=== PATIENT | female | born 2000 | race African-American/Black ===

== ENCOUNTER 2019-12-19 09:53 | Inpatient (IN) | payer BC, OTHER ==
[2019-12-19 11:01] VITALS: BMI 37.9
[2019-12-19] MEDS ORDERED: FLU VACC QS2020-21(6MOS UP)/PF 60 MCG/0.5 ML SYRINGE IM ONE (11:15)
[2019-12-19] MEDS ORDERED: Misoprostol 200 MCG TAB PR PRN (11:25)
[2019-12-19] MEDS ORDERED: Carboprost 250 MCG/ML AMP IM PRN (11:25)
[2019-12-19] MEDS ORDERED: Ondansetron PF 4 MG/2 ML Vial IVP PRN ×3 (11:25→18:06)
[2019-12-19] MEDS ORDERED: Butorphanol Tartrate 1 MG/ML VIAL SLOW IVP PRN (11:25)
[2019-12-19] MEDS ORDERED: NS / Oxytocin 40 units/1000ml 1,000 ML IV PRN (11:25)
[2019-12-19] MEDS ORDERED: Acetaminophen 500 MG TAB PO PRN (11:25)
[2019-12-19] MEDS ORDERED: HYDROcodone/Acetaminophen 5/325 mg Tablet PO PRN ×4 (11:25→18:06)
[2019-12-19] MEDS ORDERED: Diphenoxylate HCl/Atropine Tablet PO PRN ×2 (11:25)
[2019-12-19] MEDS ORDERED: Docusate 100 MG CAP PO PRN (11:25)
[2019-12-19] MEDS ORDERED: Lidocaine 1% (PF) 30 ML VIAL SC PRN (11:25)
[2019-12-19] MEDS ORDERED: Promethazine HCl 25 MG/ML VIAL IM PRN ×3 (11:25→18:06)
[2019-12-19] MEDS ORDERED: Methylergonovine 0.2 MG/ML VIAL IM PRN ×2 (11:25→18:06)
[2019-12-19] MEDS ORDERED: Ibuprofen 800 MG TAB PO PRN (11:25)
[2019-12-19] MEDS ORDERED: hydrALAZINE 20 MG/ML VIAL SLOW IVP PRN ×2 (11:25→18:06)
[2019-12-19] MEDS ORDERED: NS w/ Oxytocin 10 units 500 ML IV SCH ×2 (11:30)
[2019-12-19] MEDS ORDERED: Lactated Ringer's 1,000 ML IV SCH (11:30)
[2019-12-19] MEDS ORDERED: NS w/ Oxytocin 10 units 500 ML ONE (11:36)
[2019-12-19] MEDS ORDERED: Bupivacaine PF 0.5% 30 ML VIAL ONE (11:40)
[2019-12-19] MEDS ORDERED: Bupivacaine 0.25% HCL 30 ML VIAL ONE (11:40)
[2019-12-19 12:26] LABS: Syphilis Antibody Nonreactive (Nonreactive); Syphilis Antibody Index 0.03 S/CO (<1.00 Non-Reactive)
[2019-12-19 12:26] LABS: Hep B Surf Ag Non-Reactive S/CO (NonReactive)
[2019-12-19 13:43] LABS: Hemoglobin 12.5 g/dL (12.0-16.0); Mean Corpuscular HGB CONC 34.6 g/dL (32.0-36.0); Mean Corpuscular Hemoglobin 34.1 pg (25.0-35.0); Mean Corpuscular Volume 98.4 fL (78.0-98.0); Mean Platelet Volume 9.4 fL (7.4-10.4); Platelet Count 177 thou/uL (130-400); RBC Distribution Width 11.5 % (11.5-14.5); Red Blood Cell (RBC) Count 3.68 mill/uL (4.00-5.20); White Blood Cell (WBC) Count 8.7 thou/uL (4.8-10.8)
[2019-12-19] MEDS ORDERED: Fentanyl 4 mcg/Bup 0.1% Cadd 100 ML ONE (13:50)
[2019-12-19] MEDS ORDERED: EPHEDRINE 25 MG/5 ML SYRINGE SLOW IVP PRN (15:02)
[2019-12-19] MEDS ORDERED: Lactated Ringer's 500 ML IV PRN (15:02)
[2019-12-19] MEDS ORDERED: Acetaminophen 325 MG TAB PO PRN (15:02)
[2019-12-19] MEDS ORDERED: diphenhydrAMINE 50 MG/ML VIAL IVP PRN (15:02)
[2019-12-19] MEDS ORDERED: Naloxone HCl 0.4 mg/ml Vial IVP PRN ×2 (15:02)
[2019-12-19] MEDS ORDERED: Fentanyl 4 mcg/Bupivacaine 0.1% Cassette 100 ML EPIDURAL SCH (15:15)
[2019-12-19] MEDS ORDERED: Communication Order-Pharmacy FS SCH (15:15)
[2019-12-19] MEDS ORDERED: Lidocaine 1% (PF) 30 ML VIAL ONE (15:58)
[2019-12-19] MEDS ORDERED: NS / Oxytocin 40 units/1000ml 1,000 ML ONE (15:58)
[2019-12-19] MEDS ORDERED: Milk Of Magnesia 30 ML UDCUP PO PRN (18:06)
[2019-12-19] MEDS ORDERED: Measles/Mumps/Rubella 10 MCG/0.5 ML VIAL SC ONE (18:06)
[2019-12-19] MEDS ORDERED: Misoprostol 200 MCG TAB VAG PRN (18:06)
[2019-12-19] MEDS ORDERED: Preparation H Ointment 28 GM TUBE PR PRN (18:06)
[2019-12-19] MEDS ORDERED: Zolpidem Tartrate 5 MG TAB PO PRN (18:06)
[2019-12-19] MEDS ORDERED: Lanolin Ointment 7 GM TUBE TOP PRN (18:06)
[2019-12-19] MEDS ORDERED: diphenhydrAMINE 25 MG CAP PO PRN (18:06)
[2019-12-19] MEDS ORDERED: Benzocaine-Menthol 82.5 ML CAN TOP PRN (18:06)
[2019-12-19] MEDS ORDERED: Adacel (T-DAP) 0.5 ML SYRINGE IM ONE (18:06)
[2019-12-19] MEDS ORDERED: NS / Oxytocin 40 units/1000ml 1,000 ML IV SCH (18:06)
[2019-12-19] MEDS ORDERED: Varicella virus, LIVE 0.5 ML VIAL SC ONE (18:06)
[2019-12-19] MEDS ORDERED: Bisacodyl 10 MG SUPP PR PRN (18:06)
[2019-12-19] MEDS: Docusate Calcium (SURFAK) 240 MG CAP PO SCH (21:48)
[2019-12-19] MEDS: Ibuprofen 800 MG TAB PO SCH (21:48)
[2019-12-20 05:11] LABS: Hemoglobin 12.8 g/dL (12.0-16.0); Mean Corpuscular HGB CONC 34.9 g/dL (32.0-36.0); Mean Corpuscular Hemoglobin 34.2 pg (25.0-35.0); Mean Corpuscular Volume 97.9 fL (78.0-98.0); Platelet Count 156 thou/uL (130-400); RBC Distribution Width 11.1 % (11.5-14.5); Red Blood Cell (RBC) Count 3.74 mill/uL (4.00-5.20); White Blood Cell (WBC) Count 15.3 thou/uL (4.8-10.8)
[2019-12-20] MEDS: Ibuprofen 800 MG TAB PO SCH ×2 (05:39→15:07)
[2019-12-20] MEDS ORDERED: Prenatal Vitamin 1 TAB PO SCH (09:00)
[2019-12-20] MEDS: Ferrous Sulfate 325 MG TAB PO SCH ×2 (09:08→16:56)
[2019-12-20] MEDS: Docusate Calcium (SURFAK) 240 MG CAP PO SCH (09:59)
[2019-12-20 11:30] LABS: SARS-CoV-2 MS2 Positive; SARS-CoV-2 N Gene Negative; SARS-CoV-2 S Gene Negative; SARS-CoV-2 by NAA Not Detected (NotDetected); SARS-CoV-2 orf1ab Negative
[2019-12-20 12:02] VITALS: BP 110/65; TEMP 98.3
--- NOTE | 2019-12-20 15:09 | PDOC.PP ---
Post Progress Note Post Day #: 1 PO intake tolerated: yes Flatus: yes Ambulation: yes Vital Signs (12 hours) Temp Pulse Resp BP Pulse Ox 12/20/19 11:35 98.3 F 84 20 110/65 98 12/20/19 07:50 98.5 F 81 20 109/66 99 12/20/19 04:35 98.6 F 88 15 109/68 Weight Weight 235 lb - Physical Examination General: NAD Cardiovascular: no m/r/g, RRR Respiratory: clear to auscultation bilaterally, non-labored breathing Abdominal: + bowel sounds, lochia, no distention Extremities: negative homans (B) Neurological: no gross focal deficits Psychiatric: A&Ox3, normal affect Result Diagrams: 12/20/19 04:54 Additional Labs: Post Labs Hep Bs Antigen Non-Reactive S/CO (NonReactive) 12/19/19 11:31 Blood Type O POSITIVE 12/19/19 12:11
--- NOTE | 2019-12-20 15:20 | PDOC.LDHP ---
Labor and Delivery H&P Chief complaint: contractions HPI: 19 y/o at 37 and 1/7 weeks presents in early labor, cervix 4-5cm. Current gestational age (weeks): 37 Due date: 01/09/20 Grav: 2 Para: 1 Current complications: none Abnormal US findings: No Current medications: pre-domonique vitamins Allergies/Adverse Reactions: Allergies Allergy/AdvReac Type Severity Reaction Status Date / Time No Known Allergies Allergy Verified 12/19/19 10:56 Social history: none - Physical Exam Vital signs reviewed and normal: yes General: NAD, resting Lungs: CTAB Abdomen: gravid Extremeties: no edema - Assessment L&D Assessment: term patient in labor - Plan Plan: admit to L&D, labor augmentation if indicated
--- NOTE | 2019-12-21 00:13 | DN ---
DATE OF PROCEDURE: 12/19/2019 PREOPERATIVE DIAGNOSIS: Intrauterine at 37 weeks and zero day with a spontaneous onset of labor. POSTOPERATIVE DIAGNOSIS: Intrauterine at 37 weeks and zero day with a spontaneous onset of labor. PROCEDURE: Spontaneous vaginal delivery over intact perineum. FINDINGS: Viable male weighing 3186 g or 7 pounds 0 ounces, Apgars eight and nine. QUANTITATIVE BLOOD LOSS: 50 mL. COMPLICATIONS: None. PROCEDURE IN DETAIL: The patient presented to [facility] where she was admitted to the labor and delivery service. The patient underwent a normal and uneventful labor with normal cervical dilatation until she was found to be completely dilated. She was then allowed to push and was able to bring the baby down and delivered the baby in a vertex presentation without difficulties. Once the head delivered in occiput anterior position, the shoulders followed spontaneously along with the rest of the baby's body. Once out the baby's mouth and nose were bulb suctioned. The cord was clamped and cut and baby was handed to waiting attendants. Cord blood was collected. Gentle fundal massage was performed and the placenta delivered intact without problems. Hemostasis was assured. Quantitative blood loss was calculated. Inspection of the cervix, vaginal vault, and perineum did not reveal any lacerations needing suturing. Once again, hemostasis was within normal limits and the patient was allowed to recover in the labor and delivery room. Baby went to nursery. Job ID: [id number]
== END 2019-12-20 18:35 | disposition home or self-care (01) | DRG 807 ==
LOC: EEVIPCON 09:53 → L&D-LIB 09:53 → 3SW 18:30
PROVIDERS: ADMIT Obstetrics & Gynecology; ATTEND Obstetrics & Gynecology
PROC: 10E0XZZ Delivery of Products of Conception, External Approach (ICD-10-PCS; principal; 2019-12-19)
DX: O80 Encounter for full-term uncomplicated delivery (principal); Z37.0 Single live birth; Z20.828 Contact with and (suspected) exposure to other viral communicable diseases; Z3A.37 37 weeks gestation of pregnancy
CPT/HCPCS: 36415; 51702; 85027; 86780; 86850; 86900; 86901; 87340; 87635; J2001; J2590; S0020; U0003

== ENCOUNTER 2022-04-26 13:35 | Emergency (ER) | payer BC, OTHER ==
[2022-04-26 18:20] LABS: Bilirubin Negative (Negative); Blood, Urine Negative (Negative); Clarity Clear (Clear); Glucose, Urine (Dipstick) Normal (Negative); Ketone, Urine Negative (Negative); Leukocyte Negative Leu/uL (Negative); Nitrite Negative (Negative); Protein, Urine (Dipstick) Negative (Neg-Trace); Specific Gravity, Urine 1.022 (1.002-1.036); Urobilinogen Normal mg/dL (Less than 2)
[2022-04-26 18:21] LABS: Pregnancy Test - Urine (BHCG) Negative (Negative); Pregu Control Background? CLEAR/WHITE (CLR/WHITE); Pregu Control Bar Appear? YES (CONTROL BAR); Specific Gravity 1.022 (1.002-1.036)
[2022-04-26 19:34] LABS: SARS-CoV-2 NAA Rapid Test DETECTED (NotDetected)
== END 2022-04-26 19:51 | disposition home or self-care (01) ==
LOC: ERS 13:35
DX: U07.1 COVID-19 (principal); N60.11 Diffuse cystic mastopathy of right breast; J30.0 Vasomotor rhinitis; F17.290 Nicotine dependence, other tobacco product, uncomplicated
CPT/HCPCS: 81003; 81025; 99283